=== PATIENT | male | born 1995 | race Caucasian/White ===

== ENCOUNTER 2018-07-24 00:03 | Emergency (ER) | payer OTHER ==
[2018-07-24 00:49] VITALS: TEMP 97.6; BMI 30.4
[2018-07-24] MEDS ORDERED: DIPHTH,PERTUSS(ACELL),TET 0.5 ML DISP.SYRIN IM ONE ×2 (01:05→01:13)
[2018-07-24] MEDS ORDERED: ACETAMINOPHEN 325 MG TABLET (FP) PO ONE (01:05)
[2018-07-24] MEDS ORDERED: ceFAZolin 2 GRAM PREMIX BAG IVPB ONE (01:06)
[2018-07-24] MEDS ORDERED: ACETAMINOPHEN 325 MG TABLET (FP) ONE (01:12)
[2018-07-24] MEDS ORDERED: CEFAZOLIN 1 GM/D5W 2 GM/100 ML BAG ONE (01:18)
--- NOTE | 2018-07-24 01:25 | PDOC ---
History of Present Illness - General Chief Complaint: Laceration Stated Complaint: INJURY Time Seen by Provider: 07/24/18 00:59 - History of Present Illness Initial Comments: The patient is a 23M, left hand dominant, who presents for evaluation of a left thumb laceration that occurred just prior to arrival. Patient reports he was helping to move a refrigerator when the incident occurred. He reports being able to flex and extend his thumb, though not full range. Denies changes in sensation. Denies recent illness, fevers/chill, GIL, blurry vision, chest pain, abdominal pain, or N/V/C/D. Does not recall last tetanus shot. 07/24/18 01:17 Past History - Past Medical History Allergies/Adverse Reactions: Allergies Allergy/AdvReac Type Severity Reaction Status Date / Time No Known Allergies Allergy Verified 07/24/18 01:52 Home Medications: Ambulatory Orders Albuterol Sulfate Inhaler - [Ventolin HFA Inhaler -] 2 inh IH Q4H PRN #1 inh 10/07 - Suicide/Smoking/Psychosocial Hx Smoking History: Never smoked Have you smoked in the past 12 months: No Information on smoking cessation initiated: No Hx Alcohol Use: No Drug/Substance Use Hx: No Review of Systems - Review of Systems Able to Perform ROS?: Yes Comments:: GENERAL/CONSTITUTIONAL: No fever or chills HEAD, EYES, EARS, NOSE AND THROAT: No change in vision. No ear pain or discharge. No sore throat CARDIOVASCULAR: No chest pain or shortness of breath GASTROINTESTINAL: No nausea, vomiting, diarrhea or constipation GENITOURINARY: No dysuria, frequency, or change in urination MUSCULOSKELETAL: per HPI SKIN: No rash NEUROLOGIC: No headache, vertigo, loss of consciousness, or change in strength/ sensation ENDOCRINE: No increased thirst. No abnormal weight change HEMATOLOGIC/LYMPHATIC: No anemia, easy bleeding, or history of blood clots ALLERGIC/IMMUNOLOGIC: No hives or skin allergy 07/24/18 01:25 Is the patient limited Slovenian proficient: No *Physical Exam - Vital Signs Last Vital Signs Temp Pulse Resp BP Pulse Ox 97.6 F 85 20 108/64 99 07/24/18 00:05 07/24/18 00:05 07/24/18 00:05 07/24/18 00:05 07/24/18 00:05 - Physical Exam Comments: GENERAL: Awake, alert, and fully oriented, in no acute distress HEAD: No signs of trauma, normocephalic, atraumatic EYES: PERRLA, EOMI, sclera anicteric, conjunctiva clear ENT: Hearing grossly normal, nares patent, oropharynx clear without exudates. Moist mucosa LUNGS: No distress, speaks full sentences, clear to auscultation bilaterally HEART: Regular rate and rhythm, normal S1 and S2, no murmurs appreciated, peripheral pulses normal and equal bilaterally NEUROLOGICAL: Cranial nerves II through XII grossly intact. Normal speech, normal gait, no focal sensorimotor deficits SKIN: Warm, Dry, normal turgor, no rashes or lesions noted RUE: Inspection: No erythema or ecchymosis. No tenderness, no obvious abnormalities, no open wounds. Compartments soft and compressible, pain within proportion, no pain to passive stretch Sensation: sensation present to light touch m/r/u n Motor: intact AIN/PIN/Ulnar in hand; 5/5 Wrist flex/ext; 5/5 Elbow flex/ext; 5/ 5 Shoulder ABd,Flex Vascular: 2+ radial pulse palpated, BCR all fingers <2 sec. LUE: Inspection: L volar thumb laceration with involvement of extensor tendon ( approx 75% lacerated); Otherwise no erythema or ecchymosis. Compartments soft and compressible, pain within proportion, no pain to passive stretch Sensation: sensation present to light touch m/r/u n Motor: intact AIN/PIN/Ulnar in hand; 5/5 Wrist flex/ext; 5/5 Elbow flex/ext; 5/ 5 Shoulder ABd,Flex Vascular: 2+ radial pulse palpated, BCR all fingers <2 sec. 07/24/18 01:56 Moderate Sedation - Procedure Monitoring Vital Signs: Procedure Monitoring Vital Signs Temperature 97.6 F 07/24/18 00:05 Pulse Rate 85 07/24/18 00:05 Respiratory Rate 20 07/24/18 00:05 Blood Pressure 108/64 07/24/18 00:05 O2 Sat by Pulse Oximetry (%) 99 07/24/18 00:05 ED Treatment Course - Medications Given in the ED: ED Medications Discontinued Medications Generic Name Dose Route Start Last Admin Trade Name Freq PRN Reason Stop Dose Admin Acetaminophen 975 mg 07/24/18 01:05 07/24/18 01:16 Tylenol - PO 07/24/18 01:06 Not Given ONCE ONE Diphtheria/Tetanus/Acell Pertussis 0.5 ml 07/24/18 01:05 07/24/18 01:15 Boostrix - IM 07/24/18 01:06 0.5 ml .ONCE ONE Administration Medical Decision Making - Medical Decision Making The patient is a 23M, left hand dominant, who presents for evaluation for a traumatic volar L thumb laceration w/ tendon involvement ED Course Tetanus booster Ancef 2g IV once Will consult hand for transfer vs ED repair and f/u Tylenol for pain, patient refused at this time 07/24/18 01:26 Will transfer to [facility] to be evaluated by Plastics. Spoke w/ Plastics Resident who agreed to transfer to [facility] ED where pt will be evaluated Plastics attending: Dr. Corley Accepting ED attending: Dr. Kamara 07/24/18 01:40 Hand XR to evaluate for foreign body -Negative for foreign object Dispo: Transfer 07/24/18 01:46 *DC/Admit/Observation/Transfer Diagnosis at time of Disposition: Laceration of left thumb Qualifiers: Encounter type: initial encounter Damage to nail status: without damage Foreign body presence: without foreign body Qualified Code(s): S61.012A - Laceration without foreign body of left thumb without damage to nail, initial encounter - Discharge Dispostion Disposition: TRANSFER ACUTE CARE/OTHER HOSP Condition at time of disposition: Stable Decision to Admit order: No - Referrals - Patient Instructions - Post Discharge Activity - Transfer to Acute Care Facility Receiving Facility: [facility] Accepting Physician:: Dr. Kamara
--- NOTE | 2018-07-24 01:35 | PDOC ---
Attending Attestation - Resident Resident Name: Alex Jay - ED Attending Attestation I have performed the following: I have examined & evaluated the patient, The case was reviewed & discussed with the resident, I agree w/resident's findings & plan, Exceptions are as noted - HPI HPI: 07/24/18 01:29 23yo LHD male with L thumb laceration to the volar aspect of the thumb. No active bleeding. Tendon laceration, bone exposed. Tetanus not UTD. Neurovasc intact distal. - Physicial Exam PE: 07/24/18 01:35 Gen: aaox3, nad ext: L thumb with 2cm laceration through the volar aspect, tendon laceration, neurovasc intact, limited ROM of the finger, bone exposed, brisk cap refill, sensation intact - Medical Decision Making 07/24/18 01:29 I, Dr. Joelle Faria, DO, attest that this document has been prepared under my direction and personally reviewed by me in its entirety. I further attest, that it accurately reflects all work, treatment, procedures and medical decision -making performed by me. 07/24/18 01:36 a/p: 23yo male with L thumb laceration involving the tendon -will obtain xray -update tetanus -abx -will discuss with HAND vs plastics 07/24/18 01:[address] Murguia 07/24/18 01:37 resident discussed the case with [facility] 07/24/18 01:39 pt will be transferred to [facility] for Plastics eval *DC/Admit/Observation/Transfer Diagnosis at time of Disposition: Laceration of left thumb Qualifiers: Encounter type: initial encounter Damage to nail status: without damage Foreign body presence: without foreign body Qualified Code(s): S61.012A - Laceration without foreign body of left thumb without damage to nail, initial encounter - Discharge Dispostion Disposition: TRANSFER ACUTE CARE/OTHER HOSP Condition at time of disposition: Stable - Referrals - Patient Instructions - Post Discharge Activity - Transfer to Acute Care Facility Receiving Facility: [facility]
[2018-07-24 02:31] VITALS: BP 128/64; PULSE 82
== END 2018-07-24 03:12 | disposition short-term general hospital (02) ==
LOC: JER 00:03
PROC: 3E0234Z Introduction of Serum, Toxoid and Vaccine into Muscle, Percutaneous Approach (ICD-10-PCS; principal; 2018-07-24)
PROC: 3E03329 Introduction of Other Anti-infective into Peripheral Vein, Percutaneous Approach (ICD-10-PCS; 2018-07-24)
DX: S61.012A Laceration without foreign body of left thumb without damage to nail, initial encounter (principal); S66.222A Laceration of extensor muscle, fascia and tendon of left thumb at wrist and hand level, initial encounter; X99.8XXA Assault by other sharp object, initial encounter; Y93.89 Activity, other specified; Y92.89 Other specified places as the place of occurrence of the external cause; Y99.8 Other external cause status
CPT/HCPCS: 73130-TC-LT-FY; 90715; 99283-25

== ENCOUNTER 2018-10-10 22:41 | Emergency (ER) | payer OTHER ==
[2018-10-10 22:49] VITALS: BMI 32.5
[2018-10-10] MEDS ORDERED: ALPRAZolam 0.25 MG TABLET PO ONE (23:29)
[2018-10-11] MEDS ORDERED: ALPRAZolam 0.25 MG TABLET ONE (00:08)
--- NOTE | 2018-10-11 01:30 | PDOC ---
History of Present Illness - General Chief Complaint: Weakness Stated Complaint: SWEAT Time Seen by Provider: 10/10/18 23:22 History Source: Patient Exam Limitations: No Limitations - History of Present Illness Initial Comments: 10/11/18 01:25 Patient is a 23 year old male with h/o childhood asthma, tendon surgery to thumb , complaining of a myriad of symptoms which include shortness of breath, feeling of passing out sweaty hand, heart racing, chest tightness which has been going on for the past 2 months. States the symptoms started about 7:30 tonight and still feels symptomatic currently. States he's been having stresses on the job but does not know if this is his problem. States that he has been drinking thinking that this might contribute to his symptoms. Denies any family history of heart attacks or stroke. No recent travel no family history of PE or DVT. PMHX: as above PSOCHX: (+) etoh, neg cig, neg drugs ALL: NKDA GENERAL/CONSTITUTIONAL: No fever or chills. No weakness. No weight change. HEAD, EYES, EARS, NOSE AND THROAT: No change in vision. No ear pain or discharge. No sore throat. CARDIOVASCULAR: No chest pain or shortness of breath. RESPIRATORY: No cough, wheezing, or hemoptysis. GASTROINTESTINAL: No nausea, vomiting, diarrhea or constipation. No rectal bleeding. GENITOURINARY: No dysuria, frequency, or change in urination. MUSCULOSKELETAL: No joint or muscle swelling or pain. No neck or back pain. SKIN AND BREASTS: No rash or easy bruising. NEUROLOGIC: No headache, vertigo, loss of consciousness, or loss of sensation. PSYCHIATRIC: No depression (+) anxiety. ENDOCRINE: No increased thirst. No abnormal weight change. HEMATOLOGIC/LYMPHATIC: No anemia, easy bleeding, or history of blood clots. ALLERGIC/IMMUNOLOGIC: No hives or skin allergy. No latex allergy. GENERAL: The patient is awake, alert, and fully oriented, in no acute distress. HEAD: Normal with no signs of trauma. EYES: Pupils equal, round and reactive to light, extraocular movements intact, sclera anicteric, conjunctiva clear. ENT: Ears normal, nares patent, oropharynx clear without exudates. Moist mucous membranes. NECK: Normal range of motion, supple without lymphadenopathy, JVD, or masses. LUNGS: Breath sounds equal, clear to auscultation bilaterally. No wheezes, and no crackles. HEART: Regular rate and rhythm, normal S1 and S2 without murmur, rub. ABDOMEN: Soft, nontender, normoactive bowel sounds. No guarding, no rebound. No masses. EXTREMITIES: Normal range of motion, no edema. No clubbing or cyanosis. No cords, erythema, or tenderness. NEUROLOGICAL: Cranial nerves II through XII grossly intact. Normal speech, normal gait. PSYCH: Normal mood, normal affect. SKIN: Warm, Dry, normal turgor, no rashes or lesions noted. Past History - Past Medical History Allergies/Adverse Reactions: Allergies Allergy/AdvReac Type Severity Reaction Status Date / Time No Known Allergies Allergy Verified 10/10/18 22:49 Home Medications: Ambulatory Orders Albuterol Sulfate Inhaler - [Ventolin HFA Inhaler -] 2 inh IH Q4H PRN #1 inh 10/07 COPD: No - Suicide/Smoking/Psychosocial Hx Smoking History: Never smoked Have you smoked in the past 12 months: No Information on smoking cessation initiated: No Hx Alcohol Use: No Drug/Substance Use Hx: No Substance Use Type: None *Physical Exam - Vital Signs Last Vital Signs Temp Pulse Resp BP Pulse Ox 98.3 F 91 H 16 165/99 100 10/10/18 22:46 10/10/18 22:46 10/10/18 22:46 10/10/18 22:46 10/10/18 22:46 Moderate Sedation - Procedure Monitoring Vital Signs: Procedure Monitoring Vital Signs Temperature 98.3 F 10/10/18 22:46 Pulse Rate 91 H 10/10/18 22:46 Respiratory Rate 16 10/10/18 22:46 Blood Pressure 165/99 10/10/18 22:46 O2 Sat by Pulse Oximetry (%) 100 10/10/18 22:46 ED Treatment Course - Medications Given in the ED: ED Medications Discontinued Medications Generic Name Dose Route Start Last Admin Trade Name Freq PRN Reason Stop Dose Admin Alprazolam 0.5 mg 10/10/18 23:29 10/11/18 00:10 Xanax - PO 10/10/18 23:30 0.25 mg ONCE ONE Administration Medical Decision Making - Medical Decision Making 10/11/18 01:25 Patient is a 23 year old male with h/o childhood asthma, tendon surgery to thumb , complaining of a myriad of symptoms which include shortness of breath, feeling of passing out sweaty hand, heart racing, chest tightness which has been going on for the past 2 months. States the symptoms started about 7:30 tonight and still feels symptomatic currently. States he's been having stresses on the job but does not know if this is his problem. States that he has been drinking thinking that this might contribute to his symptoms. Denies any family history of heart attacks or stroke. No recent travel no family history of PE or DVT. Symptoms are consistent with anxiety, will give a trial of Xanax 0.5 mg, EKG and chest x-ray. EKG: SLR and 91, RAD, incomplete RBBB, no ST-T wave changes Chest x-ray shows no acute infiltrates, hilar dominance, no cardiomegaly Patient refused 0.5 mg of Xanax but took 0.25mg po and feels improved I discussed the physical exam findings, ancillary test results and final diagnoses with the patient. I answered all of the patient's questions. The patient was satisfied with the care received and felt comfortable with the discharge plan and treatment plan. The Patient agrees to follow up with the primary care physician within 24-72 hours. *DC/Admit/Observation/Transfer Diagnosis at time of Disposition: Heart palpitations, Chest tightness, Shaking - Discharge Dispostion Disposition: HOME Condition at time of disposition: Stable - Referrals Referrals: Angeli Fonseca MD [Provisional Medical Staff] - - Patient Instructions Printed Discharge Instructions: DI for Atypical Chest Pain, DI for Dizziness- Nonvertigo, DI for Palpitations Additional Instructions: Your Discharge Instructions: You must call primary care physician within 24 hours to arrange follow-up. Return to the Emergency Department with any new, persistent or worsening symptoms, for fever, chills, SOB, dizziness or any other concerning changes that may occur. - Post Discharge Activity
[2018-10-11 01:58] VITALS: BP 141/78; PULSE 77; TEMP 100
--- NOTE | 2018-10-11 12:11 | EKG ---
Test Reason : Blood Pressure : / mmHG Vent. Rate : 091 BPM Atrial Rate : 091 BPM P-R Int : 156 ms QRS Dur : 098 ms QT Int : 346 ms P-R-T Axes : 070 139 039 degrees QTc Int : 425 ms NORMAL SINUS RHYTHM RIGHT AXIS DEVIATION INCOMPLETE RIGHT BUNDLE BRANCH BLOCK POSSIBLE RIGHT VENTRICULAR HYPERTROPHY ABNORMAL ECG NO PREVIOUS ECGS AVAILABLE Confirmed by DELMI ROGERS MD ([id number]) on 10/11/2018 12:11:33 PM Referred By: Confirmed By:DELMI ROGERS MD
== END 2018-10-11 01:58 | disposition home or self-care (01) ==
LOC: JER 22:41
DX: F41.9 Anxiety disorder, unspecified (principal); R00.2 Palpitations; R07.89 Other chest pain
CPT/HCPCS: 71046-TC-FY; 93005; 93010; 99281-25